=== PATIENT | female | born 1950 | race Caucasian/White ===

== ENCOUNTER → 2018-08-31 13:36 | Emergency (ER) | payer MEDICARE ==
[~2018-08-31 13:36] MED LIST: Magnesium CITRATE* 300 ML BTL PO ONE
--- OUTSIDE RECORDS SUMMARY | 2018-08-31 13:55 | XMS REPORT | Continuity of Care Document ---
:1950 External Reference #:[id number] Author Name Tom Rosenthal MD Address [address] [place] [address] Care Team Providers Name Role Phone Martha Haddad N.P. Care Team Information Band Leader Unavailable Tj Finch M.D. Primary Care Physician Unavailable Payers Date Identification Numbers Payment Provider Subscriber Effective: 2018 Policy Number: [id number] [employer] [place] PayID: [id number] [address] [address] [place] [address] Policy Number: [id number] [facility] [employer] [employer] [place] PayID: [id number] 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 Family History Date Family Member(s) Observation Comments General Asthma Social History Type Date Description Comments Sex Unknown Occupation Works At [employer] Tobacco Use Start: Unknown Never Smoked Cigarettes Tobacco Use Start: Unknown Never Smoked Cigars Tobacco Use Start: Unknown Never Smoked A Pipe Smokeless Tobacco Never Used Smokeless Tobacco ETOH Use Denies alcohol use Allergies, Adverse Reactions, Alerts Date Description Reaction Status Severity Comments 08/18/2018 Seafood Active Medications Medication Date Status Form Strength Qnty SIG Indications Ordering Provider Docusate Sodium Active Capsules 100mg Take One Unknown /0000 Capsule By Mouth Twice A Day Montelukast Active Tablets 10mg Take One Unknown Sodium /0000 Tablet By Mouth Every Day Tab-A-Lin Active Tablets Take 1 Unknown /0000 Tablet By Mouth Once Daily Fluticasone Active Suspension 50mcg/Act [place] 2 Unknown Propionate /0000 Sprays Into Each Nostril Once Daily Atorvastatin 00/00 Active Tablets 10mg Take One Unknown Calcium /0000 Tablet By Mouth Every Day Fluzone Active Prabha 0.5ml For Unknown High-Dose /0000 Vaccination Alendronate Active Tablets 70mg Take 1 Unknown Sodium /0000 Tablet By Mouth Every Week Qvar Redihaler Active Aerosol 40mcg/Act Inhale Two Unknown /0000 Puffs By Mouth Every 12 Hours Phenobarbital Active Tablets 30mg Unknown /0000 Robitussin 12 Active Suer 30mg/5ML Unknown Hour Cough /0000 Relief Artificial Active Solution 0.2-0.2-1 instill into Unknown Tears /0000 % left eye as needed for dryness Imodium A-D Active Capsules 2mg Unknown /0000 Calcium 600 Active Tablets 600mg 1 by mouth Unknown / twice a day Lactaid Active Tablets 3000Unit Unknown /0000 Tylenol Active Tablets 325mg as needed Unknown / for pain Immunizations Description No Information Available Vital Signs Date Vital Result Comment 08/18/2018 9:24am Weight 142.50 lb Weight 64.638 kg Height 62 inches 5'2" Height in cm's 157.5 cm BMI (Body Mass Index) 26.1 kg/m2 Results Description No Information Available Procedures Description No Information Available Encounters Type Date Location Provider Dx Diagnosis Office Visit 08/18/2018 Farrah Bell [place] D10.39 Benign neoplasm of 9:00a 06/20/07 other parts of mouth Plan of Treatment 08/18/2018 - Tom Rosenthal MDD10.39 Benign neoplasm of other parts of mouthComments:Small hemangioma of the lower lip.no evidence of neoplasm reassured recheck when necessary.
--- OUTSIDE RECORDS SUMMARY | 2018-08-31 13:55 | XMS REPORT | Continuity of Care Document ---
:1950 External Reference #:[id number] Author Name Shanique Prieto MD Address [address] [place] [address] Care Team Providers Name Role Phone Tj Finch M.D. Primary Care Physician Unavailable Payers Date Identification Numbers Payment Provider Subscriber Effective: 1975 Policy Number: [id number] [place] Expires: 2013 PayID: [id number] [address] [address] [place] [address] Effective: 1998 Policy Number: [id number] [facility] [place] Expires: 2012 PayID: [id number] [address] [address] [place] [address] Effective: 2012 Policy Number: [id number] [facility] Arabella Torres [place] Group Number: [id number] [facility] [id number] PayID: [id number] [place] [address] Advance Directives Description No Information Available Problems Date Description Provider Status Onset: 07/11/2012 Breast signs and symptoms JACI Beauchamp Active Note: s/p ductal breast cancer, left Onset: 07/11/2012 Mild mental handicap JACI Beauchamp Active Onset: 03/01/2018 Lichen sclerosus et atrophicus Shanique Prieto MD Active Family History Date Family Member(s) Observation Comments Mother due to Unknown Causes () Social History Type Date Description Comments Sex Unknown Cigarette Use Does not smoke cigarettes Alcohol Denies alcohol use Tobacco Use Start: Unknown Patient has never smoked Drug Use Denies drug use Smoking Status Reviewed: 08/24/18 Patient has never smoked Daily Caffeine Does not consume caffeine Seat Belt/Car Seat Always uses a seat belt Currently Active The patient is currently not sexually active Allergies, Adverse Reactions, Alerts Date Description Reaction Status Severity Comments 03/02/2005 Erythromycin Active 06/25/2009 Seafood Active 06/25/2009 Horse Active 06/25/2009 Cats Active 06/25/2009 Pollen Active 06/25/2009 Lactose Intolerance Active Medications Medication Date Status Form Strength Qnty SIG Indications Ordering Provider Clobetasol 01/24 Active Ointment 0.05% 15uni Apply To [facility] ts Perineum, , Shanique, Labia And MD Around Clitoris Once Daily Until Symptoms Have Improved Claritan 07/28 Active 10mg Sujatha Acosta Mukesh KATE M.D. Valium 07/28 Active 5mg Sujatha Acosta Mukesh KATE M.D. Flonase Active Suspension 50mcg/Spr 3unit Unknown / ay s Phenobarbital Active Injection 30mg/ml Unknown / Tylenol Active Tablets 325mg Unknown / Neosporin Active Cream 3.5mg;100 Unknown /0000 00U/GM Ibuprofen Active 400mg Unknown / Loprox Active Unknown / Colace Active Unknown /0000 Daily-Lin Active Unknown / Artificial Active Unknown Tears /0000 Calcium Active Unknown Carbonate /0000 Lactaid Active Unknown / Nystatin Active Unknown / Proctosol HC Active Unknown /0000 Vitamin D Active Unknown / Proair HFA Active Unknown /0000 Qvar Active Unknown /0000 Robitussin DM Active Unknown /0000 Levothyroxine Active Unknown Sodium / Singulair Active Unknown /0000 Imodium A-D Active Unknown / Atorvastatin Active 10mg Unknown Calcium / Keflex 07/05 Hx Capsules 500mg 21cap 1 po tid s Jump, - ANP-C 07/12 Diflucan 06/30 Hx Tablets 100mg 10tab 1 po x 10 616.10 s days Jump, - ANP-C 07/11 Diflucan 06/24 Hx Tablets 150mg 1tabs 1 po times 1 day Jump, - ANP-C 07/11 Replens 07/02 Hx OTC 1unit use as Xochitl /2010 s directed Jump, - from insert ANP-C 11/15 Docusate Sodium 07/28 Hx Capsules 100mg 90cap 1 po tid prn E. s constipation Mukesh Lopez JR., M.D. 06/24 Citracal + D 07/28 Hx 600mg E. Mukesh Lopez JR., M.D. 06/24 Shaniqua Hx Tablets 180mg 0tabs 1 po qd Unknown / - 07/28 Singulair Hx Tablets 10mg Unknown /08/12 Advair Diskus Hx Inhaler 100mcg;50 Unknown / mcg - 07/11 Robitussin DM Hx Syrup 100mg;10m 1 TSP Q 4-6 Unknown /0000 g/5ML HRS prn - 07/11 Hydrocortisone Hx Cream 5% Unknown Buteprate /08/12 Pseudovent 400 00/ Hx 120mg Unknown / - 06/24 Immodium 00/00 Hx Unknown /08/12 Zinc-220 00/ Hx Unknown /07/11 Advair Diskus 00/00 Hx Unknown / - 06/24 Singulair /00 Hx Unknown /06/24 Phenobarbital 00/00 Hx Unknown /06/24 Saline Nasal / Hx Unknown [place] /03/10 Acetaminophen 00/00 Hx Unknown /07/11 Zinc Oxide 00/00 Hx Unknown /07/11 Femara 00/00 Hx Unknown /07/11 Arimidex 00/00 Hx Unknown / - 10/23 Qvar 00/00 Hx Unknown /07/11 Caltrate 600+D 00/00 Hx Unknown / - 11/15 Fosamax 00/00 Hx Unknown / - 11/15 Alendronate 00/00 Hx Unknown Sodium /08/03 Medications Administered in Office Medication Date Status Form Strength Qnty SIG Indications Ordering Provider PT SCRN Tbco Administered Injection Baclawski, Id as Non User 019 MD Shanique No PT Tbco Administered Injection Xochitl SCRN RNG 019 JACI Romeo PT SCRN Tbco Administered Injection Xochitl Id as Non User 019 JACI Romeo Immunizations Description No Information Available Vital Signs Date Vital Result Comment 08/24/2018 1:51pm BP Systolic 112 mmHg BP Diastolic 68 mmHg Height 62.5 inches 5'2.50" Weight 134.00 lb BMI (Body Mass Index) 24.1 kg/m2 Last Menstrual Period [id number] 0 08/03/2018 1:03pm BP Systolic 128 mmHg BP Diastolic 60 mmHg Height 62.5 inches 5'2.50" Weight 135.00 lb BMI (Body Mass Index) 24.3 kg/m2 Last Menstrual Period [id number] 0 Parity 0 03/24/2017 1:57pm BP Systolic 120 mmHg BP Diastolic 70 mmHg Height 62.5 inches 5'2.50" Weight 138.00 lb BMI (Body Mass Index) 24.8 kg/m2 Last Menstrual Period 1936230 0 Parity 0 06/08/2016 7:44am BP Systolic 132 mmHg BP Diastolic 84 mmHg Height 62.5 inches 5'2.50" Weight 140.00 lb BMI (Body Mass Index) 25.2 kg/m2 Last Menstrual Period [id number] 0 03/10/2016 9:54am BP Systolic 134 mmHg BP Diastolic 88 mmHg Height 62.5 inches 5'2.50" Weight 140.00 lb BMI (Body Mass Index) 25.2 kg/m2 Last Menstrual Period [id number] 0 10/23/2014 7:47am BP Systolic 104 mmHg BP Diastolic 62 mmHg Height 62.5 inches 5'2.50" Weight 136.00 lb BMI (Body Mass Index) 24.5 kg/m2 Last Menstrual Period [id number] 0 Parity 0 11/15/2013 8:59am BP Systolic 110 mmHg BP Diastolic 72 mmHg Height 62.5 inches 5'2.50" Weight 130.00 lb BMI (Body Mass Index) 23.4 kg/m2 0 Parity 0 10/10/2013 9:04am BP Systolic 116 mmHg BP Diastolic 68 mmHg Height 62.5 inches 5'2.50" Weight 134.00 lb BMI (Body Mass Index) 24.1 kg/m2 0 07/11/2012 10:18am BP Systolic 110 mmHg BP Diastolic 70 mmHg Height 62.50 inches 5'2.50" Weight 135.00 lb BMI (Body Mass Index) 24.3 kg/m2 0 Parity 0 07/09/2011 9:03am BP Systolic 118 mmHg BP Diastolic 68 mmHg Height 63.5 inches 5'3.50" Weight 133.00 lb BMI (Body Mass Index) 23.2 kg/m2 0 Parity 0 06/30/2011 9:00am BP Systolic 122 mmHg BP Diastolic 68 mmHg Height 63.5 inches 5'3.50" Weight 136.00 lb BMI (Body Mass Index) 23.7 kg/m2 0 Parity 0 07/02/2010 12:50pm BP Systolic 124 mmHg BP Diastolic 60 mmHg Height 63.5 inches 5'3.50" Weight 131.00 lb BMI (Body Mass Index) 22.8 kg/m2 Last Menstrual Period 0 2005 0 Parity 0 06/25/2009 9:13am BP Systolic 110 mmHg BP Diastolic 64 mmHg Height 63.5 inches 5'3.50" Weight 130.00 lb BMI (Body Mass Index) 22.7 kg/m2 Last Menstrual Period 0 s/p menopausal 0 Parity 0 04/16/2008 8:55am BP Systolic 122 mmHg BP Diastolic 64 mmHg Height 63.5 inches 5'3.50" Weight 139.00 lb BMI (Body Mass Index) 24.2 kg/m2 0 Parity 0 07/28/2007 1:52pm BP Systolic 120 mmHg BP Diastolic 62 mmHg Height 63.5 inches 5'3.50" Weight 138.00 lb BMI (Body Mass Index) 24.1 kg/m2 05/08/2007 1:45pm BP Systolic 110 mmHg BP Diastolic 78 mmHg Height 63.5 inches 5'3.50" Weight 144.00 lb BMI (Body Mass Index) 25.1 kg/m2 Last Menstrual Period 0 04/01/2006 3:56pm BP Systolic 120 mmHg BP Diastolic 78 mmHg Height 63.5 inches 5'3.50" Weight 136.00 lb BMI (Body Mass Index) 23.7 kg/m2 Last Menstrual Period [id number] 03/02/2005 1:25pm BP Systolic 100 mmHg BP Diastolic 60 mmHg Height 53.25 inches 4'5.25" Weight 136.00 lb BMI (Body Mass Index) 33.7 kg/m2 Last Menstrual Period 9194238 0 Parity 0 Results Test Date Facility Test Result H/L Range Note Laboratory test 11/15/2013 [facility] See Note 1 finding Pathology Laboratory test 11/23/2012 [facility] LDH 158 U/L 95-185 [place] [address] [phone] He4 Ovarian Cancer Marker 76 pmol/L <=114 2 CA 125 Antigen 11.4 U/mL 2.0-35.0 3 Afp Tumor Marker 1.4 ng/mL 4 Beta HCG Quantitative < 2.1 MIU/ML 0.0-5.0 5 Inhibin B <10 pg/mL 6 Creatinine 08/03/2012 [facility] Creatinine 0.90 mg/dL 0.50- 1.40 [place] [address] [phone] Egfr Non- 63.2 >60 Egfr 81.3 >60 7 Laboratory test 08/03/2012 [facility] Blood Urea 12 mg/dL 6- 24 [place] [address] Nitrogen [phone] Laboratory test 06/30/2011 [facility] Genital --------- 8 finding [place] [address] Culture ------- [phone] <SEE NOTE> Laboratory test 07/02/2010 [facility] Cytology --------- 9 finding [place] [address] ------- [phone] <SEE NOTE> Laboratory test 06/25/2009 [facility] Cytology --------- 10 finding [place] [address] ------- [phone] <SEE NOTE> Cytology 06/24/2009 [facility] Cytology Non --------- Ductal 11 Non-Basting Machine Operator [place] [address] Basting Machine Operator ------- [place] [phone] <SEE NOTE> Laboratory test 04/16/2008 [facility] Cytology --------- 12 [place] [address] ------- [phone] <SEE NOTE> Laboratory test 05/08/2007 [facility] Cytology --------- 13 finding [place] [address] ------- [phone] <SEE NOTE> Laboratory test 04/04/2006 [facility] Cytology --------- [address] [place] [address] ------- [phone] <SEE NOTE> Laboratory test 11/08/2001 [facility] FSH 5.64 15 [place] [address] MIU/ML [phone] [facility], [address], [address] [place] [address] SURGICAL PATHOLOGY REPORT Name: Arabella Wall Pathology #: [id number] : 1950 (Age: 63) Sex: F Location: [place] [facility] Med. Rec. # [id number] Date of Procedure: 11/15/2013 Billing #: [id number] Date Received: 11/15/2013 Requisition #: [id number] Physician(s): SHANIQUE PRIETO MD Specimen(s) Received: Vulvar biopsy Clinical Information: Lichen sclerosus. 697.8 Gross Description: Specimen received in formalin labeled "vulvar biopsy" is a patino-marquez rubbery tissue fragment measuring 0.3 cm in greatest dimension. Submitted in toto. (1 block) lr /MTM Microscopic Description: The sections show detached epidermis only with no underlying dermis. The tissue shows hyperkeratosis with focal vacuolar basal change. These changes suggest lichen sclerosus, but the dermal component is absent. There is no atypia. Diagnosis: VULVA, BIOPSY - DETACHED EPIDERMIS WITH CHANGES CONSISTENT WITH LICHEN SCLEROSUS. (SEE MICROSCOPIC DESCRIPTION). Reported: 11/16/2013 Electronic Signature cf Pravin Haque MD [facility] ICD-9 Codes: 624.09 2 HE4 Assay Clinical Review Nurse: Resoomay Methodology: Enzyme Immunometric Assay Assay Sensitivity: 15 pmol/L HE4 values obtained with different assay methods or kits cannot be used interchangeably. Results cannot be interpreted as absolute evidence of the presence or absence of malignant disease. Test Performed by: [facility] [address] [place] [id number] 3 The CA 125 assay is not recommended as a cancer screening test, but rather as an aid in monitoring response to therapy for patients with epithelial ovarian cancer. Serial testing for patients CA 125 assay values should be used in conjunction with other methods used for screening ovarian cancer. Assayed by Chemiluminescence Microparticle Immunoassay on the [employer]. The values obtained with different assay methods or kits cannot be used interchangeably. 4 -- REFERENCE VALUE -- <6.0 Reference values are for non- subjects only; production of AFP elevates values in women. The testing method is an immunoenzymatic assay manufactured by [employer] and performed on the ClerkyI 800. Values obtained with different assay methods or kits may be different and cannot be used interchangeably. Test results cannot be interpreted as absolute evidence for the presence or absence of malignant disease. Alpha-Fetoprotein values are not interpretable in females for the investigation of malignant disease. Test Performed by: [place] [address] Assistant Finance Director: Prasanth Bergman III, M.D. 5 Males: < 5.0 miu/ml Non females < 5.0 miu/ml Approx gestational age approx HCG range 0-1 week < 5.0-50 1-2 weeks 50-500 2-3 weeks 100-5000 3-4 weeks 500-10,000 1-2 months 10,000-200,000 2-3 months 15,000-100,000 Please note: The intended use of this assay is the quantitative determination of HCG in human serum or plasma for the early detection of . These assays should not be used to diagnose any condition unrelated to . If an HCG level is inconsistent with, or unsupported by, clinical evidence, results should be confirmed by an alternate HCG method. 6 -- REFERENCE VALUE -- <139 (Premenopausal, Follicular) <92 (Premenopausal, Luteal) <10 (Postmenopausal) The testing method is a manual immunoenzymatic assay manufactured by [employer] Values obtained with different assay methods or kits may be different and cannot be used interchangeably. If this test is being ordered as a tumor marker, results cannot be interpreted as absolute evidence for the presence or absence of malignant disease. For research use only. Test Performed by: [address] [address] Assistant Finance Director: Prasanth Bergman III, M.D. 7 Because ethnic data is not always readily available, this report includes an eGFR for both -Americans and non- Americans. The National Kidney Disease Education Program (NKDEP) does not endorse the use of the MDRD equation for patients that are not between the ages of 18 and 70, are , have extremes of body size, muscle mass, or nutritional status, or are non- or non-. According to the National Kidney Foundation, irrespective of diagnosis, the stage of the disease is based on the level of kidney function: Stage Description GFR(mL/min/1.73 m(2)) 1 Kidney damage with normal or decreased GFR 90 2 Kidney damage with mild decrease in GFR 60-89 3 Moderate decrease in GFR 30-59 4 Severe decrease in GFR 15-29 5 Kidney failure <15 (or dialysis) 8 RUN DATE: 07/02/11 [facility] NMI LIVE PAGE 1 RUN TIME: 1157 Specimen Inquiry RUN USER: INTERFACE Name: ARABELLA WALL#: [id number] Status: REG REF Re06/30/11 Age/Sex: 61/F Unit#: [id number] Location: [facility] : 48 SPEC #: [id number] NEIL: 06/30/11 STATUS: COMP REQ #: [id number] RECD: 06/30/11 [facility] DR: Xochitl Romeo CNP SOURCE: GENITAL ENTR: 06/30/[address] [facility] [address]: ITALO: LABIA ORDERED: GENITAL CULTURE QUERIES: MEDENT REQUISITION # [id number] ACT WKST: B 07/02/11 #2 Procedure Result Verified Site > GENITAL CULTURE Final 07/02/11- 1157 ML Organism 1 BETA STREP GROUP B Susceptibility testing of penicillins and other B-lactams approved by FDA for treatment of Streptococcus pyogenes (Group A Strep) and Streptococcus agalactiae (Group B Strep) is not necessary for clinical purposes and need not be done routinely, since as with vancomycin, resistant strains have not been recognized. (CLSI X649-P14;p.66) Positive isolates will be saved for one week. Please call the Microbiology Laboratory if further susceptibility testing is needed. QUANTITY MODERATE Organism 2 NORMAL VLADIMIR QUANTITY MODERATE [facility] Permit #[id number] [facility] [employer] [place] [address] DEPARTMENT OF PATHOLOGY, [facility] [employer] [place] [address] [facility] Permit #[id number] Cherie Polo M.D. [employer]er [employer] 9 --- RUN DATE: 07/03/10 [facility] NMI LIVE PAGE 1 RUN TIME: 1508 Specimen Inquiry RUN USER: INTERFACE -- Name: MAEARABELLA Status: REG REF Re07/02/10 Age/Sex: 60/F Unit#: [id number] Location: [facility] : 49 -- Specimen: [id number] SOUT Spec Date: 07/02/[address]: Xochitl Fountain mp SUPERVISOR [employer] EFFECT[employer] Spec Type: CYTOLOGY Received: 07/03/10-1220 Copies to: SOURCE ECTOCERVICAL/ENDOCERVICAL Thin Prep with Reflex HPV Test PATIENT INFORMATION ACTUAL COLLECTION DATE: 07/02/10 POST MENOPAUSAL? Yes DATE OF PRIOR SPECIMEN: 06/25/09 PATIENT HISTORY: Last menstrual period 2005 ADEQUACY OF SPECIMEN Satisfactory for evaluation * Transformation zone component identified * DIAGNOSIS NEGATIVE FOR INTRAEPITHELIAL LESION OR MALIGNANCY * This Pap test was evaluated with the assistance of the ThinPrep Pap Test Imaging System. The Pap Smear is a screening test designed to aid in the detection of premalign ant and malignant conditions of the uterine cervix. It is not a diagnostic procedure a nd should not be used as the sole means of detecting cervical cancer. Both false- positiv e and false-negative reports do occur. Depending on your risk status, a Pap smear kathy uld be obtained and evaluated every one to three years. Initial evaluation performed by Michel GARDINER([facility]) 07/03/10 Final Interpretation electronically signed by: Michel GARDINER([facility]) 07/03/10 1507 -- -- DEPARTMENT OF PATHOLOGY, [address] [place] [address] [facility] Permit #[id number] Cherie Polo M.D. Latin Professor Dir baldwin -- 10 ---- RUN DATE: 06/26/09 [facility] NMI LIVE PAGE 1 RUN TIME: 1133 Specimen Inquiry RUN USER: INTERFACE -- Name: MAEARABELLA Status: REG REF Re06/25/09 Age/Sex: 59/F Unit#: [id number] Location: [facility] : 49 -- Specimen: [id number] SOUT Spec Date: 06/25/[address]: Xochitl Fountain mp SUPER[employer]OR [employer] Spec Type: CYTOLOGY Received: 06/26/09-1011 Copies to: SOURCE ECTOCERVICAL/ENDOCERVICAL Thin Prep with Reflex HPV Test PATIENT INFORMATION ACTUAL COLLECTION DATE: 06/25/09 DATE OF PRIOR SPECIMEN: 04/16/08 ADEQUACY OF SPECIMEN Satisfactory for evaluation * Transformation zone component identified * DIAGNOSIS NEGATIVE FOR INTRAEPITHELIAL LESION OR MALIGNANCY * This Pap test was evaluated with the assistance of the ThinPrep Pap Test Imaging System. The Pap Smear is a screening test designed to aid in the detection of premalign ant and malignant conditions of the uterine cervix. It is not a diagnostic procedure a nd should not be used as the sole means of detecting cervical cancer. Both false- positiv e and false-negative reports do occur. Depending on your risk status, a Pap smear kathy uld be obtained and evaluated every one to three years. Initial evaluation performed by Michel GARDINER([facility]) 06/26/09 Final Interpretation electronically signed by: Michel GARDINER([facility]) 06/26/09 1132 -- -- DEPARTMENT OF PATHOLOGY, [address] [place] [address] [facility] Permit #[id number] Cherie Polo M.D. Assistant Dir ector -- 11 ---- RUN DATE: 06/25/09 [facility] NMI LIVE PAGE 1 RUN TIME: 1140 Specimen Inquiry RUN USER: INTERFACE -- Name: ARABELLA WALL Status: REG REF Re06/24/09 Age/Sex: 59/F Unit#: [id number] Location: [facility] : 49 -- Specimen: [id number] SOUT Spec Date: 06/24/09 [facility] Dr: Mitch frazier MD Spec Type: CYTOLOGY Received: 06/25/09 Copies to: Xochitl Finch MD SOURCE FINE NEEDLE ASPIRATION left breast PATIENT INFORMATION ACTUAL COLLECTION DATE: 06/24/09 PATIENT HISTORY: left breast lump GROSS DESCRIPTION 4 alcohol fixed slide(s) received from clinician, with moderate materail. Needle rinse in Cytolyt solution for cell block. DIAGNOSIS Breast, left, fine needle aspirate: Malignant- Ductal cell carcinoma. COMMENT A cell block was prepared in the evaluation of this specimen. Initial evaluation performed by Michel GARDINER([facility]) 06/25/09 Final Interpretation electronically signed by: DWIGHT ALEXANDRA MD 06/25/09 11 39 -- -- DEPARTMENT OF PATHOLOGY, [address] [place] [address] [facility] Permit #[id number] Cherie Polo M.D. Latin Professor Dir denny -- 12 ---- RUN DATE: 04/17/08 [facility] NMI LIVE PAGE 1 RUN TIME: 804 Specimen Inquiry RUN USER: INTERFACE -- Name: ARABELLA WALL Status: REG REF Re04/16/08 Age/Sex: 58/F Unit#: [id number] Location: [facility] : 48 -- Specimen: [id number] SOUT Spec Date: 04/16/[address]: Melissa crawford Jr, MD Spec Type: CYTOLOGY Received: 04/16/08-0967 Copies to: SOURCE ECTOCERVICAL/ENDOCERVICAL Thin Prep with Reflex HPV Test PATIENT INFORMATION ACTUAL COLLECTION DATE: 04/16/08 POST MENOPAUSAL? Yes DATE OF PRIOR SPECIMEN: 05/08/07 Last menstrual period 04/26 ADEQUACY OF SPECIMEN Satisfactory for evaluation * Transformation zone component cannot be definitely identified due to prese nce * of atrophy or other hormonal changes. * DIAGNOSIS NEGATIVE FOR INTRAEPITHELIAL LESION OR MALIGNANCY * This Pap test was evaluated with the assistance of the ThinPrep Pap Test Imaging System. The Pap Smear is a screening test designed to aid in the detection of premalign ant and malignant conditions of the uterine cervix. It is not a diagnostic procedure a nd should not be used as the sole means of detecting cervical cancer. Both false- positive and false-negative reports do occur. Depending on your risk status, a Pap smear kathy uld be obtained and evaluated every one to three years. Final Interpretation electronically signed by: Nidia DELGADO([facility]) 04/17/08 080 5 -- -- DEPARTMENT OF PATHOLOGY, [address] [place] [address] [facility] Permit #[id number] Dwight Alexandra M.D. Director of Laboratories -- 13 ---- RUN DATE: 05/15/07 [facility] NMI LIVE PAGE 1 RUN TIME: 1540 Specimen Inquiry RUN USER: INTERFACE [id number] ARABELLA WALL 57/F <REG REF 05/08> ([id number]) MILA Mayorga Jr, MD,Melissa Acosta -- Specimen: [id number] SOUT Spec Date: 05/08/07 [facility] [address]: Melissa crawford Jr, MD Spec Type: CYTOLOGY Received: 05/09/07-1102 Copies to: SOURCE ECTOCERVICAL/ENDOCERVICAL Thin Prep with Reflex HPV Test PATIENT INFORMATION ACTUAL COLLECTION DATE: 05/08/07 PREVIOUS ABNORMAL PAP SMEARS Yes DATE OF PRIOR SPECIMEN: 04/06/06 PREVIOUS CYTOLOGY/SURGICAL SPECIMEN #: [id number] Dysfunctional uterine bleeding ADEQUACY OF SPECIMEN Satisfactory for evaluation * Transformation zone component cannot be definitely identified due to prese nce * of atrophy or other hormonal changes. * Predominance of white blood cells * DIAGNOSIS NEGATIVE FOR INTRAEPITHELIAL LESION OR MALIGNANCY * This Pap test was evaluated with the assistance of the ThinPrep Pap Test Imaging System. The Pap Smear is a screening test designed to aid in the detection of premalign ant and malignant conditions of the uterine cervix. It is not a diagnostic procedure a nd should not be used as the sole means of detecting cervical cancer. Both false- positive and false-negative reports do occur. Depending on your risk status, a Pap smear kathy uld be obtained and evaluated every one to three years. Initial evaluation performed by Michel GARDINER([facility]) 05/10/07 Final Interpretation electronically signed by: Michel GARDINER([facility]) 05/15/07 1540 -- -- DEPARTMENT OF PATHOLOGY, [address] [place] [address] [facility] Permit #[id number] Dwight Alexandra M.D. Director of Laboratories -- 14 ---- RUN DATE: 04/06/06 [facility] NMI LIVE PAGE 1 RUN TIME: 1533 Specimen Inquiry RUN USER: INTERFACE [id number] ARABELLA WALL 56/F <REG REF 04/01> ([id number]) Sujatha Dexter MD., Jr. -- Specimen: [id number] Spec Date: 04/01/[address]: Sujatha Mayorga MD. Spec Type: CYTOLOGY Received: 04/05/06 Copies to: SOURCE ECTOCERVICAL/ENDOCERVICAL Thin Prep with Reflex HPV Test PATIENT INFORMATION ACTUAL COLLECTION DATE: 04/01/06 PREVIOUS ABNORMAL PAP SMEARS Yes If YES, diagnosis: EPITHELIAL CELL ABNORMALITY, GLANDULAR CELL ATYPICAL LAST MENSTRUAL PERIOD: 03/14/06 DATE OF PRIOR SPECIMEN: 03/02/05 PREVIOUS CYTOLOGY/SURGICAL SPECIMEN #: 8046 ADEQUACY OF SPECIMEN Satisfactory for evaluation * Transformation zone component identified * DIAGNOSIS NEGATIVE FOR INTRAEPITHELIAL LESION OR MALIGNANCY * The Pap Smear is a screening test designed to aid in the detection of premalign ant and malignant conditions of the uterine cervix. It is not a diagnostic procedure an d should not be used as the sole means of detecting cervical cancer. Both false-positive and false-negative reports do occur. Depending on your risk status, a Pap smear kathy uld be obtained and evaluated every one to three years. Signed Electronically signed Michel GARDINER(ASCP) 04/06/06 -- -- DEPARTMENT OF PATHOLOGY, [address] [place] [address] [facility] Permit #[id number] Vasyl Galvin II, M.D. Director Cherie Polo irector -- 15 NORMAL RANGE MALES 1 - 20 NORMALLY MENSTRUATING FEMALES - Follicular Phase 3 - 9 - Mid-Cycle Peak 4 - 23 - Luteal Phase 1 - 6 POSTMENOPAUSAL FEMALES 16 - 114 . 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 (general) (routine) w/o abn findings L90.0 Lichen sclerosus et atrophicus Office Visit 03/24/2017 2:00p [facility] Shanique Prieto, L90.0 Lichen sclerosus et atrophicus Z01.411 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 exam (general) (routine) w abnormal findings Office Visit 06/08/2016 8:00a [facility] Shanique Prieto, L90.0 Lichen sclerosus MD et atrophicus Office Visit 03/10/2016 10:00a [facility] Office Shanique Prieto, L90.0 Lichen sclerosus et atrophicus Z01.411 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 exam (general) (routine) w abnormal findings Office Visit 10/23/2014 8:00a [facility] Office Shanique Prieto MD 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 697.8 Lichen Other Not Elsewhere Class V10.3 History Personal Malignant Neoplasm Breast 733.00 Osteoporosis Unspec 218.9 Leiomyoma Uterus Unspec Office Visit 10/10/2013 9:00a [facility] Office Shanique Prieto, 627.3 Atrophic Vaginitis MD Postmenopausal 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 218.9 Leiomyoma Uterus Unspec 697.8 Lichen Other Not Elsewhere Class 733.00 Osteoporosis Unspec V10.3 History Personal Malignant Neoplasm Breast Office Visit 07/11/2012 10:40a [facility] Office Xochitl Romeo, 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 Examination 611.79 Breast Signs & Symptoms Other 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 V76.2 Screening Malignant Neoplasm Cervix Office Visit 07/02/2010 1:20p [facility] Office Xochitl Romeo 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 Examination V76.2 Screening Malignant Neoplasm Cervix 627.3 Atrophic Vaginitis Postmenopausal V15.89 History Personal Health Hazards Spec Other Office Visit 06/25/2009 9:20a [facility] Office Xochitl Romeo 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 Examination V76.2 Screening Malignant Neoplasm Cervix V15.89 History Personal Health Hazards Spec Other Office Visit 04/16/2008 9:00a [facility] Office Sujatha Mayorga 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 Cherie KATE Examination V76.2 Screening Malignant Neoplasm Cervix V15.89 History Personal Health Hazards Spec Other Office Visit 07/28/2007 1:40p [facility] Office Sujatha Mayorga 627.1 Postmenopausal Cherie KATE Bleeding 564.09 Constipation Other Office Visit 05/08/2007 1:30p [facility] Office Sujatha Mayorga 627.1 Postmenopausal Cherie KATE Bleeding Office Visit 04/22/2006 2:00p [facility] Sujatha Mayorga 627.1 Postmenopausal Cherie KATE Bleeding 218.9 Leiomyoma Uterus Unspec 620.2 Ovarian Cyst Other & Unspec Office Visit 05/02/2003 10:40a [facility] Lisa Fajardo V72.3 Examination Cherie Garcia Gynecological V78.1 Screening Deficiency Anemia Other & Unspec V76.2 Screening Malignant Neoplasm Cervix Plan of Treatment Future Appointment(s):09/29/2018 2:30 pm - Shanique Prieto MD at [facility] [id number] - Shanique Prieto MDL90.0 Lichen sclerosus et atrophicusComments: Recommend clobetasol twice daily until the soreness improves. Attempted to explain proper application to pt but uncertain if she really understands. Will try to get in touch with the nurse at her home to see if she can apply it once daily. F/u in 1 month to assess for improvement.F70 Mild intellectual disabilities
--- NOTE | 2018-08-31 15:50 | ED ---
Abdominal Pain/Female - HPI Summary HPI Summary: Patient is a 68-year-old female with a history of constipation presenting to the ED with a 2 week history of hard stools. Patient is currently taking suppositories, Colace, milk of magnesia, prune juice and one time enema this morning. Aid at the [facility] states they're not having significant results, only small amount of hard stools. Patient denies any abdominal pain, however endorses rectal pain. Per caregiver, there may be rectal sores. Endorses positive gas, denies burping. Denies fevers, sweats, chills. She states this is happened to her before and has needed a CT scan to evaluate for obstruction. - History of Current Complaint Chief Complaint: EDAbdPain Stated Complaint: BOWEL OBSTRUCTION PER PT Time Seen by Provider: 08/31/18 15:39 Hx Obtained From: Patient, Family/Senior Planning Analyst ?: No Onset/Duration: Sudden Onset Timing: Constant Severity Initially: Severe Severity Currently: Moderate Pain Intensity: 0 Pain Scale Used: 0-10 Numeric Location: Other - Rectum Radiates: No Character: Sharp Aggravating Factor(s): Nothing Alleviating Factor(s): Nothing Associated Signs and Symptoms: Positive: Negative Allergies/Adverse Reactions: Allergies Allergy/AdvReac Type Severity Reaction Status Date / Time lactose Allergy GI Upset Verified 08/31/18 13:47 seafood Allergy Unknown Uncoded 08/31/18 13:47 Reaction Details PMH/Surg Hx/FS Hx/Imm Hx Previously Healthy: Yes Endocrine/Hematology History: Denies: Hx Diabetes, Hx Systemic Lupus Erythematosus Cardiovascular History: Denies: Hx Congestive Heart Failure, Hx Hypertension, Other Cardiovascular Problems/Disorders - , pt denies and per history from [facility] Respiratory History: Reports: Hx Asthma Comment Only: Other Respiratory Problems/Disorders - history from [facility] GI History: Comment Only: Other GI Disorders - pt unable to state why she is here today, hx hemorrhoids,constipation History: Denies: Hx Dialysis, Hx Renal Disease, Other Problems/Disorders - pt unable to confirm Musculoskeletal History: Reports: Hx Osteoporosis, Other Musculoskeletal History - hx osteopenia per [facility], hx from [facility] Denies: Hx Rheumatoid Arthritis - Cancer History Cancer Type, Location and Year: left breast ca with radiation ? year, unable to confirm full hx Hx Chemotherapy: No - reviewed with pts brother, legal gaurdian Hx Radiation Therapy: Yes - Surgical History Surgery Procedure, Year, and Place: lumpectomy left breast with radiation, pt unable to state if she had chemo, unable to confirm full hx - Immunization History Hx Pertussis Vaccination: No Immunizations Up to Date: Yes Infectious Disease History: No Infectious Disease History: Denies: Traveled Outside the [place] in Last 30 Days - Social History Occupation: Unemployed, Disabled Lives: [facility] Alcohol Use: None Hx Substance Use: No Substance Use Type: Reports: None Hx Tobacco Use: No Smoking Status (MU): Never Smoked Tobacco Review of Systems Constitutional: Negative Negative: Fever, Chills, Fatigue, Skin Diaphoresis Negative: Palpitations Negative: Shortness Of Breath, Cough Positive: Other - constipation and rectal pain. Negative: Abdominal Pain, Vomiting, Diarrhea, Nausea Skin: Negative Neurological: Negative All Other Systems Reviewed And Are Negative: Yes Physical Exam Triage Information Reviewed: Yes Vital Signs On Initial Exam: Initial Vitals Temp Pulse Resp BP Pulse Ox 98.5 F 107 16 144/81 99 08/31/18 13:39 08/31/18 13:39 08/31/18 13:39 08/31/18 13:39 08/31/18 13:39 Vital Signs Reviewed: Yes Appearance: Positive: Well-Appearing, Well-Nourished Skin: Positive: Warm, Skin Color Reflects Adequate Perfusion Head/Face: Positive: Normal Head/Face Inspection Eyes: Positive: EOMI, BIRD, Conjunctiva Clear Neck: Positive: Supple, No Lymphadenopathy Respiratory/Lung Sounds: Positive: Clear to Auscultation, Breath Sounds Present Cardiovascular: Positive: RRR, Pulses are Symmetrical in both Upper and Lower Extremities. Negative: Tachycardia, Leg Edema Left, Leg Edema Right Abdomen Description: Positive: Nontender, Soft Bowel Sounds: Positive: Present Musculoskeletal: Positive: Strength/ROM Intact Neurological: Positive: Alert, Oriented to Person Place, Time Psychiatric: Positive: Normal, Affect/Mood Appropriate Diagnostics - Vital Signs Vital Signs Temp Pulse Resp BP Pulse Ox 08/31/18 15:30 148/71 08/31/18 13:39 98.5 F 107 16 144/81 99 - Laboratory Lab Statement: Any lab studies that have been ordered have been reviewed, and results considered in the medical decision making process. Abdominal Pain Fem Course/Dx - Course Course Of Treatment: During the patient's was drinking, she is evaluated for severe constipation 2 weeks. She has been going every 3-4 days which has been 2-3 hard stools which are very small. No hx of obstruction. CT abd/pelvis: shows no acute obstruction. Rectal exam with attempt at disimpaction with soap suds enema performed by me without success. Second attempt at disimpaction after soap suds shows some stool, soft. She sits on the commode x 15 minutes, but continues to be unable to have a BM. She is given 300ml mag citrate as well. She states she would like to go home and try. Aids at bedside verbalize understanding and are OK with going home to help her at this time and will return if she continues to not have a BM. She is given another bottle mag citrate and they will continue fleets enema at home. Both aids and patient voice understanding of DC instructions and return precautions. - Diagnoses Provider Diagnoses: Constipation Discharge - Sign-Out/Discharge Documenting (check all that apply): Patient Departure Patient Received Moderate/Deep Sedation with Procedure: No - Discharge Plan Condition: Stable Disposition: HOME Patient Education Materials: Constipation (ED) Referrals: Tj Finch MD [Primary Care Provider] - Additional Instructions: mag citrate - all of bottle tomorrow morning You can also buy this over the counter continue with colace, prune jucie and milk of magnesia at home Barrier cream to the buttocks after attempting each bowel movement or showering until symptoms improve Drink plenty of water - Billing Disposition and Condition Condition: STABLE Disposition: Home
[2018-08-31 17:50] VITALS: BP 146/72
== END | disposition home or self-care (01) ==
LOC: ED 13:36
DX: K59.00 Constipation, unspecified (principal); J45.909 Unspecified asthma, uncomplicated; M81.0 Age-related osteoporosis without current pathological fracture; Z85.3 Personal history of malignant neoplasm of breast
CPT/HCPCS: 74176; 99282; A9270-GY

== ENCOUNTER 2020-10-02 11:37 | Observation (INO) ==
[~2020-10-02 11:37] MED LIST changes: +Buffered Lidocaine 1% SYRIN 1 ml INTRADERM ONE; +Dexamethasone IV 4 MG/ML VIAL 1 ml VIAL ONE; +Glycopyrrolate IV 0.2 MG/ML 1 ML VIAL ONE; +HYDROmorphone 1 MG/1 ML SYRINGE IV PRN; +HYDROmorphone 1 MG/1 ML SYRINGE ONE; +Lactated Ringers 1000 ml BAG 1,000 ML IV SCH; +Lidocaine 2% PF 5 ML VIAL ONE; -Magnesium CITRATE* 300 ML BTL PO ONE; +Midazolam 2 mg/2 ml VIAL 1 mg/ml 2 ml VIAL (2 mg) ONE; +Naloxone 0.4 mg VIAL 0.4 mg/ml 1 ml VIAL IV PRN; +Ondansetron 4 mg VIAL 2 MG/ML 2 ml VIAL ONE; +Phenylephrine IV 10 MG/ML 1 ml VIAL ONE; +Prochlorperazine 5 mg/ml 2 ml VIAL (10 mg) IV PRN; +Propofol 10 MG/ML 20 ML BTL ONE; +Rocuronium 50 mg VIAL 10 mg/ml 5 ml VIAL (50 mg) ONE; +diPHENhydraMINE IV 50 MG/ML 1 ml VIAL (BENADRYL) IV PRN
[2020-10-02] MEDS ORDERED: Buffered Lidocaine 1% SYRIN 1 ml INTRADERM ONE (12:29)
[2020-10-02] MEDS ORDERED: Bupivacaine 0.25% SDV 30 ML ONE (13:07)
[2020-10-02] MEDS ORDERED: Lidocaine 1% VIAL 10 MG/ML VIAL ONE (13:07)
[2020-10-02] MEDS ORDERED: Succinylcholine 200 mg VIAL 20 mg/ml 10 ml VIAL (200 mg) ONE (13:15)
[2020-10-02] MEDS ORDERED: HYDROmorphone 1 MG/1 ML SYRINGE ONE (13:47)
[2020-10-02] MEDS ORDERED: Propofol 10 MG/ML 20 ML BTL ONE (13:49)
[2020-10-02] MEDS ORDERED: EPHEDrine (Pressors) 50 MG/ML VIAL ONE (14:26)
[2020-10-02] MEDS ORDERED: Phenylephrine IV 10 MG/ML 1 ml VIAL ONE (14:36)
[2020-10-02] MEDS ORDERED: Lidocaine 2% PF 5 ML VIAL ONE (15:11)
[2020-10-02] MEDS ORDERED: Metoprolol Tartrate 5 mg VIAL 5 ml VIAL (1 mg/ml) ONE ×3 (16:13→17:00)
[2020-10-02] MEDS ORDERED: Nystatin TOP POWDER 15 GM BTL TOPICAL PRN (17:48)
[2020-10-02] MEDS ORDERED: Albuterol HFA INHALER 8 gm MDI INH PRN (17:48)
[2020-10-02] MEDS ORDERED: oxyCODONE/Acetamin 5/325 mg TAB PO PRN (17:54)
[2020-10-02] MEDS ORDERED: PHENobarbital 100 mg TAB PO SCH (21:00)
[2020-10-02] MEDS: Calcium Carb (TUMS) 500 mg CHEW TAB PO SCH (21:41)
[2020-10-03] MEDS ORDERED: CMC:Lactase Enzyme (NF) 3,000 UNIT TAB PO SCH (07:30)
[2020-10-03 08:00] VITALS: BP 130/71
[2020-10-03] MEDS ORDERED: Polyethylene Glycol 3350 17 GM PACKET PO SCH (09:00)
[2020-10-03] MEDS ORDERED: Fluticasone NASAL SPRAY 50MCG 16 gm SPRAY BTL INTRANASAL SCH (09:00)
[2020-10-03] MEDS: Calcium Carb (TUMS) 500 mg CHEW TAB PO SCH (09:29)
[2020-10-03 09:41] LABS: BUN/Creatinine Ratio 16.1 (8-20); Calcium 10.5 mg/dL (8.6-10.3); EGFR African American 71.9 (>60); EGFR Non-African American 59.4 (>60); Potassium 4.5 mmol/L (3.5-5.0)
== END 2020-10-03 11:48 | disposition home or self-care (01) ==
LOC: SSU 11:37 → OR 11:37 → SSU 17:55
PROVIDERS: ADMIT Orthopaedic Surgery Adult Reconstructive Orthopaedic Surgery; ATTEND Surgery

== ENCOUNTER 2024-07-09 14:34 | Inpatient (IN) ==
[2024-07-09 17:44] LABS: ABS Basophils 0.1 10^3/uL (0.0-0.1); ABS Eosinophils 0.1 10^3/uL (0.0-0.5); ABS Monocytes 0.9 10^3/uL (0.0-0.9); ABS Neutrophils 10.4 10^3/uL (1.5-7.6); ABS Nucleated RBC 0.01 10^3/ul; Eosinophil % 0.5 %; Hematocrit 41.4 % (35-45); Hemoglobin 13.6 g/dL (11.5-14.3); Lymphocyte % 8.1 %; Mean Corpuscular Hgb Conc 32.8 g/dL (31-36); Mean Corpuscular Volume 91.6 fL (80-97); Mean Platelet Volume 9.3 fL (7.5-11.2); Nucleated Red Blood Cells % 0.1 %/100WBC (0.0-0.8); Platelet Count 164 10^3/uL (150-450); Red Blood Count 4.52 10^6/uL (3.63-4.92); Red Cell Distribution Width 15.2 % (12-17); White Blood Count 12.6 10^3/uL (3.8-11.8)
[2024-07-09 17:53] LABS: INR 1.13 (0.85-1.14)
[2024-07-09 18:37] LABS: Albumin 4.2 g/dL (3.5-5.7); Albumin/Globulin Ratio 1.4 (1-3); Calcium 10.8 mg/dL (8.6-10.3); Creatinine, Serum 1.06 mg/dL (0.51-0.95); Globulin 2.9 g/dL (2-4); Potassium 5.2 mmol/L (3.5-5.0); Total Bilirubin 0.6 mg/dL (0.2-1.0); Total Protein 7.1 g/dL (6.4-8.9); eGFR CKD-EPI 54.8 (>60)
[2024-07-09 21:15] LABS: Activated Partial Thrombo Time 31.8 seconds (26.0-38.0)
[2024-07-09 21:27] LABS: ABS Basophils 0.1 10^3/uL (0.0-0.1); ABS Eosinophils 0.1 10^3/uL (0.0-0.5); ABS Lymphocytes 1.2 10^3/uL (1.0-4.8); ABS Monocytes 0.9 10^3/uL (0.0-0.9); ABS Neutrophils 9.3 10^3/uL (1.5-7.6); ABS Nucleated RBC 0.02 10^3/ul; Hematocrit 40.5 % (35-45); Hemoglobin 13.4 g/dL (11.5-14.3); Lymphocyte % 10.6 %; Mean Corpuscular Hemoglobin 30.2 pg (27-33); Mean Corpuscular Hgb Conc 33.1 g/dL (31-36); Mean Corpuscular Volume 91.2 fL (80-97); Mean Platelet Volume 9.5 fL (7.5-11.2); Nucleated Red Blood Cells % 0.1 %/100WBC (0.0-0.8); Platelet Count 169 10^3/uL (150-450); Red Blood Count 4.44 10^6/uL (3.63-4.92); Red Cell Distribution Width 14.8 % (12-17); White Blood Count 11.6 10^3/uL (3.8-11.8)
[2024-07-09] MEDS: Heparin 5000 UNITS/ML 1 mL VIAL IV SCH (21:28)
[2024-07-09] MEDS: Heparin DRIP 25,000 UNITS BAG 25,000 UNITS/250 ML BAG IV SCH (21:39)
[2024-07-09 22:26] LABS: Creatinine, Serum 0.95 mg/dL (0.51-0.95); eGFR CKD-EPI 62.5 (>60)
[2024-07-09] MEDS ORDERED: [UNRECOGNIZED DRUG - OTHER] TOPICAL PRN (23:34)
[2024-07-09] MEDS ORDERED: Albuterol HFA INHALER 8 gm MDI INH PRN (23:34)
[2024-07-09] MEDS ORDERED: Saline NASAL SPRAY 0.65% BTL BOTH NARES PRN (23:34)
[2024-07-09] MEDS ORDERED: Polyethylene Glycol 3350 17 GM PACKET PO PRN (23:34)
[2024-07-10 02:48] LABS: High Sensitivity Troponin 1 Hr < 3 pg/mL (<15)
[2024-07-10 04:02] LABS: ABS Basophils 0.1 10^3/uL (0.0-0.1); ABS Eosinophils 0.1 10^3/uL (0.0-0.5); ABS Lymphocytes 1.6 10^3/uL (1.0-4.8); ABS Monocytes 0.9 10^3/uL (0.0-0.9); ABS Neutrophils 8.4 10^3/uL (1.5-7.6); Eosinophil % 1.3 %; Hemoglobin 12.8 g/dL (11.5-14.3); Lymphocyte % 14.2 %; Mean Corpuscular Hemoglobin 30.1 pg (27-33); Mean Corpuscular Hgb Conc 32.9 g/dL (31-36); Mean Corpuscular Volume 91.6 fL (80-97); Mean Platelet Volume 9.8 fL (7.5-11.2); Platelet Count 165 10^3/uL (150-450); Red Blood Count 4.26 10^6/uL (3.63-4.92); Red Cell Distribution Width 14.8 % (12-17); White Blood Count 11.1 10^3/uL (3.8-11.8)
[2024-07-10 04:56] LABS: Calcium 10.1 mg/dL (8.6-10.3); Creatinine, Serum 0.96 mg/dL (0.51-0.95); Potassium 4.7 mmol/L (3.5-5.0); eGFR CKD-EPI 61.7 (>60)
[2024-07-10 05:31] LABS: Calcium (PTH Intact) 10.1 mg/dL (8.6-10.3)
[2024-07-10] MEDS: Lactase Enzyme (NF) 3,000 UNIT TAB PO SCH (07:34)
[2024-07-11 07:40] LABS: Calcium 9.7 mg/dL (8.6-10.3); Creatinine, Serum 0.96 mg/dL (0.51-0.95); Phosphorus 2.9 mg/dL (2.5-5.0); Potassium 4.6 mmol/L (3.5-5.0); eGFR CKD-EPI 61.7 (>60)
[2024-07-11 08:37] LABS: ABS Eosinophils 0.1 10^3/uL (0.0-0.5); ABS Lymphocytes 1.3 10^3/uL (1.0-4.8); ABS Monocytes 0.7 10^3/uL (0.0-0.9); ABS Neutrophils 6.6 10^3/uL (1.5-7.6); Eosinophil % 1.7 %; Lymphocyte % 14.3 %; Mean Corpuscular Hemoglobin 30.3 pg (27-33); Mean Corpuscular Hgb Conc 33.2 g/dL (31-36); Mean Corpuscular Volume 91.3 fL (80-97); Mean Platelet Volume 9.4 fL (7.5-11.2); Platelet Count 167 10^3/uL (150-450); Red Blood Count 4.28 10^6/uL (3.63-4.92); Red Cell Distribution Width 14.7 % (12-17); White Blood Count 8.8 10^3/uL (3.8-11.8)
[2024-07-11] MEDS ORDERED: Midazolam 5 mg/5 ml VIAL 1 mg/ml 5 ml VIAL (5 mg) ONE (10:14)
[2024-07-11] MEDS ORDERED: fentaNYL 100 mcg/2 ml 50 MCG/ML VIAL ONE ×2 (10:14→11:21)
[2024-07-11] MEDS ORDERED: Lidocaine 1% VIAL 10 MG/ML 30 ML VIAL ONE (10:26)
[2024-07-11] MEDS ORDERED: Iodixanol 320 (CONTRAST) 100 ML SDV ONE (10:27)
[2024-07-11] MEDS ORDERED: Heparin 2 UNITS/ML 1000 mls 1,000 ML IV ONE ×2 (10:28→11:32)
[2024-07-11] MEDS ORDERED: Heparin 1,000 UNIT/ML 10 ml (10,000 UNITS) CATHLAB/DIALYSIS ONE (11:46)
[2024-07-11 15:54] VITALS: BP 110/64
== END 2024-07-11 17:02 | disposition home or self-care (01) | DRG 271 ==
LOC: EDHOLD 14:34 → ED 14:34 → OBSVTOIN 21:10 → SUATTDRO 21:10 → MEDTELE 07-10 01:39
PROVIDERS: ADMIT Internal Medicine; ATTEND Student in an Organized Health Care Education/Training Program